=== PATIENT | female | born 1965 | race Caucasian/White ===

== ENCOUNTER 2019-11-17 19:52 | Emergency (ER) | payer SELFPAY ==
[2019-11-17 19:56] VITALS: BP 107/70; PULSE 104; RESP 16; TEMP 37.2; O2SAT 94; BMI 27.1
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
[2019-11-17 20:05] VITALS: BP 107/70; PULSE 105; RESP 16; TEMP 37.2; O2SAT 94; BMI 27.4
[2019-11-17 20:37] LABS: Basophils # 0.1 10^3/uL (0.0-0.1); Basophils % 0.6 %; Eosinophils # 0.1 10^3/uL (0.0-0.8); Eosinophils % 1.6 %; Hematocrit 43.3 % (37.0-47.0); Hemoglobin 14.7 g/dL (11.5-15.3); Lymphocytes % 24.1 %; Mean Corpuscular HGB Conc 33.9 g/dL (30.0-36.0); Mean Corpuscular Hemoglobin 32.7 pg (28.0-34.0); Mean Corpuscular Volume 96.2 fL (81-99); Mean Platelet Volume 9.7 fL (7.4-10.4); Monocytes # 0.5 10^3/uL (0.2-0.9); Monocytes % 5.8 %; Neutrophils # 5.6 10^3/uL (1.8-7.7); Neutrophils % 67.4 %; Nucleated Red Blood Cells % 0 %; Platelet Count 316 10^3/cmm (130-400); White Blood Count 8.3 10^3/uL (4.0-10.0)
[2019-11-17] MEDS: iohexol 300 mg/mL 100 mL Btl IV (20:49)
[2019-11-17 20:54] LABS: Alcohol Level 135 mg/dL (0-10); Anion Gap 16.2 (5-19); Blood Urea Nitrogen 13 mg/dL (6-20); Calcium 8.8 mg/dL (8.5-10.5); Carbon Dioxide 22 mmol/L (22-29); Chloride 107 mmol/L (98-107); Glomerular Filtration Rate 86.9 mL/min (90-130); Glucose 126 mg/dL (65-115); Osmolality Calculated 292 mOsm/kg (285-295); Potassium 3.2 mmol/L (3.5-5.1); Sodium 142 mmol/L (136-145)
--- NOTE | 2019-11-17 21:32 | PC.NURSE ---
MD at bedside to suture. Pt. tolerating well.
[2019-11-17 21:51] VITALS: BP 96/73; PULSE 97; RESP 18; O2SAT 97
--- NOTE | 2019-11-17 21:56 | PC.NURSE ---
Dry dressing placrd to left arm prior to discharge
== END 2019-11-17 21:56 | disposition home or self-care (01) ==
PROVIDERS: Emergency Provider Emergency Medicine; PCP Family Medicine
DX: S51.012A Laceration without foreign body of left elbow, initial encounter (principal); V89.2XXA Person injured in unspecified motor-vehicle accident, traffic, initial encounter; F17.210 Nicotine dependence, cigarettes, uncomplicated
CPT/HCPCS: 12002; 12345; 36415; 70450; 70486; 71260; 72125; 73080; 74177; 80048; 80307; 85025; 99283; Q9967

== ENCOUNTER 2020-04-25 09:10 | Emergency (ER) | payer SELFPAY ==
[2020-04-25] MEDS: sodium chloride 0.9% 1,000 ML 999 ML IV (09:30)
[2020-04-25 09:36] VITALS: BP 99/73; PULSE 89; RESP 18; TEMP 36.3; O2SAT 97; BMI 24.9
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
--- NOTE | 2020-04-25 09:41 | W.ED.ABDPA2 ---
HPI - Abdominal Pain General: Chief Complaint: Urogenital-Female Stated Complaint: POSSIBLE UTI Time Seen by Provider: 04/25/20 09:17 Source: patient Mode of arrival: ambulatory Limitations: no limitations History of Present Illness: HPI narrative: 54 yo female patient presents to ER with c/o right flank pain that radiates around to her gorwn. Pt states has known kidney stones and the pain feels similar. Pt denies any fever. pt c/o nausea but denies vomiting diarrhea or constipation. Pt denies any urinary symptoms. Onset of pain x 1 day. Associated Symptoms: Reports nausea; Denies chills, constipation, diarrhea, dysuria, fever(s), hematuria, syncope and vomiting Review of Systems Const: Denies: fever(s), chills or body aches Eyes: Denies: change in vision ENMT: Denies: throat pain or mouth pain Card: Denies: chest pain, palpitations, irregular heart rhythm, lightheadedness, syncope or dyspnea on exertion Resp: Denies: dyspnea, productive cough, non-productive cough, wheezing or stridor GI: Reports: abdominal pain and nausea; Denies: vomiting, diarrhea or constipation : Reports: flank pain; Denies: difficulty voiding, dysuria, urinary frequency, urinary urgency, hematuria, vaginal bleeding or vaginal discharge Musc: Denies: neck pain or back pain Skin/Breast: Denies: rash Neuro: Denies: headache(s), numbness in extremities, weakness in extremities, dizziness, vertigo or confusion Psych: Denies: anxiety, suicidal ideation or homicidal ideation [facility] ED PFSH: Social History Smoking and tobacco status: current every day smoker Physical Exam Const: COMMON NORMALS: no acute distress, average body habitus, patient oriented x3, no limitations, healthy appearing, alert and well nourished Eye: COMMON NORMALS: Equal, round and reactive pupils present, EOMs intact bilaterally and conjunctivae normal CONJUNCTIVA: Yes conjunctivae normal PUPIL: Yes Equal, round and reactive pupils present Neck/C-Spine: COMMON NORMALS: full ROM and no lymphadenopathy Lymph: LYMPHATIC: no lymphadenopathy noted Chest: COMMONS NORMALS: normal inspection of the chest and normal palpation of entire chest wall Resp: COMMON NORMALS: normal respiratory effort, No retractions, No use of accessory muscles and clear to auscultation bilaterally AUSCULTATION: clear to auscultation bilaterally Cardio: COMMON NORMALS: regular rate and regular rhythm RATE: regular rate RHYTHM: regular rhythm GI: COMMON NORMALS: Normal to inspection, nondistended, normoactive bowel sounds present, Soft to palpation, non-tender, No hepatosplenomegaly present and no masses PALPATION: Yes Soft to palpation and Yes No hepatosplenomegaly present : COMMON NORMALS: No no CVA tenderness and Yes normal external appearance BLADDER/KIDNEY EXAM: No no CVA tenderness and Yes CVA tenderness on the right Back/Pelvis: COMMON NORMALS: thoracic and lumbar spine normal to inspection, no thoracic nor lumbar tenderness, thoraco-lumbar ROM normal and straight leg raise negative bilaterally; negative for no CVA tenderness GENERAL BACK: Yes CVA tenderness Extremity: COMMON NORMALS: normal to inspection, full ROM and capillary refill normal Neuro: COMMON NORMALS: patient oriented x3 SENSORIUM/ORIENTATION: Yes alert Psych: COMMON NORMALS: mental status grossly normal, denies homicidal ideation and denies suicidal ideation Skin: COMMON NORMALS: no rashes or lesions noted, no wounds and turgor normal GENERAL SKIN EXAM: no rashes or lesions noted and turgor normal Course Vital Signs: Vital signs: Vital Signs Temperature 97.3 F L 04/25/20 09:36 Pulse Rate 76 04/25/20 10:20 Respiratory Rate 16 04/25/20 10:20 Blood Pressure 106/70 04/25/20 10:20 Pulse Oximetry 96 04/25/20 10:20 MDM - Abdominal Pain MDM Narrative: Medical decision making narrative: Pt is well appearing non toxic and in no acute distress. Patient had good clinical improvement of pain after pain meds and fluids. CT abd/pelvis reveals Patient: Sandra Zaldivar #: [id number] : 1965Acct#:[id number] Age/Sex: 54 / FADM Date: 04/25/20 Loc: ERRoom/Bed: Attending Dr: Ordering Provider/Ordering MD: Jaqui Michaels NP Date of Service: 04/25/20 Procedure(s): CT kidney stone 34886 Accession Number(s): [id number] Report Number: [id number] PROCEDURE INFORMATION: Exam: CT Abdomen And Pelvis Without Contrast Exam date and time: 04/25/2020 9:44 AM Age: 54 years old Clinical indication: Abdominal pain; Flank; Right; Prior surgery; Surgery date: 6+ months; Surgery type: Hyster, gb; Additional info: Flank pain known kidney stones TECHNIQUE: Imaging protocol: Computed tomography of the abdomen and pelvis without contrast. Note sagittal and coronal reconstructions were not performed. Radiation optimization: All CT scans at this facility use at least one of these dose optimization techniques: automated exposure control; mA and/or kV adjustment per patient size (includes targeted exams where dose is matched to clinical indication); or iterative reconstruction. COMPARISON: CT chest abd pel w con* 11/17/2019 8:40 PM RADIATION DOSE METRICS: Total DLP (mGy-cm): 692.56 FINDINGS: Detailed evaluation of the abdominal and pelvic viscera is somewhat limited in the absence of intravenous contrast. Lungs: Interstitial disease and mild parenchymal stranding. 2 mm left lower lobe nodule (series 2: Image 10). For patients at low risk (minimal or absent history of smoking and of other known risk factors), no routine follow-up is indicated. For patients at high risk (history of smoking or of other known risk factors), consider optional CT Chest at 12 months. (Reference: Donald). Liver: Fatty infiltration of the liver. Gallbladder and bile ducts: Status post cholecystectomy. Pancreas: No pancreatic mass or ductal dilatation. Spleen: No splenomegaly. Adrenal glands: Unremarkable adrenals. Kidneys and ureters: Multiple nodular hypodense renal lesions, including a stable 4.2 cm lower pole cyst. 1 mm nonobstructing right renal calculi. Stomach and bowel: No significant small bowel dilatation. Air-fluid levels in the mildly dilated colon. Appendix: No acute appendicitis. Intraperitoneal space: No significant free-fluid prior Vasculature: Vascular calcification. Normal caliber of the abdominal aorta. Lymph nodes: Subcentimeter lymph nodes. Urinary bladder: Nondistended bladder limiting evaluation. Reproductive: Status post hysterectomy. Bones/joints: Osteopenia. Degenerative change and disc bulging. CT/CT kidney stone [id number] IMPRESSION: 1. Multiple nodular hypodense right renal lesions, including a stable 4.2 cm lower pole cyst. 1 mm nonobstructing right renal calculi. 2. Additional findings as described above. Impression. COMMENTS: Consistent with the [employer]'s Incidental Findings Committee white paper (J Am Allison Radiol 2018): Any incidental renal lesion less than 1 cm or classified as too small to characterize, or any incidental cystic renal lesion characterized as simple-appearing, is likely benign. No follow-up imaging is recommended for these lesions per consensus recommendations based on imaging criteria. Based on these new findings, I will refer patient to Urology for follow up and further evaluation. Labs do not reveal any acute findings. Given patients pain is controlled with po pain meds, I will plan to discharge at this time Differential Diagnosis: Differential diagnosis abdominal pain: Likely abdominal pain, acute appendicitis, calculus of kidney, constipation, diverticulitis, pancreatitis and small bowel obstruction Medical Records: Attestation: I reviewed the patient's medical records. Lab Data: Attestation: I reviewed the patient's lab results. Labs: Lab Results 04/25/20 04/25/20 04/25/20 Range/Units 09:50 10:18 10:18 WBC 7.7 (4.0-10.0) 10^3/ uL RBC 4.23 (4.1-5.3) 10^6/u L Hgb 13.1 (11.5-15.3) g/dL Hct 39.5 (37.0-47.0) % MCV 93.4 (81-99) fL MCH 31.0 (28.0-34.0) pg MCHC 33.2 (30.0-36.0) g/dL RDW 12.7 (12.1-15.1) % Plt Count 322 (130-400) 10^3/c mm MPV 9.6 (7.4-10.4) fL Neut % (Auto) 52.2 % Lymph % (Auto) 37.4 % [place] % (Auto) 7.3 % Eos % (Auto) 2.5 % Baso % (Auto) 0.5 % Neut # (Auto) 3.99 (1.8-7.7) 10^3/u L Lymph # (Auto) 2.9 (0.8-4.8) 10^3/u L [place] # (Auto) 0.6 (0.2-0.9) 10^3/u L Eos # (Auto) 0.2 (0.0-0.8) 10^3/u L Baso # (Auto) 0.0 (0.0-0.1) 10^3/u L Nucleated RBC % (a uto) 0 % Nucleated RBCs # 0.0 /100WBC Sodium 141 (136-145) mmol/L Potassium 3.5 (3.5-5.1) mmol/L Chloride 107 (98-107) mmol/L Carbon Dioxide 25 (22-29) mmol/L Anion Gap 12.5 (5-19) BUN 14 (6-20) mg/dL Creatinine 0.8 (0.5-0.9) mg/dL GFR Calculation 74.5 L (90-130) mL/min Glucose 77 (65-115) mg/dL Calculated Osmolal ity 291 (285-295) mOsm/k g Calcium 8.9 (8.5-10.5) mg/dL Total Bilirubin 0.3 (0.15-1.2) mg/dL AST 20 (0-32) U/L ALT 21 (0-33) U/L Alkaline Phosphata se 68 (35-105) IU/L Total Protein 6.5 L (6.6-8.7) g/dL Albumin 4.2 (3.5-5.2) g/dL Globulin 2.3 (1.3-4.6) g/dL Lipase 40 (13-60) U/L Urine Color Straw (Yellow) Urine Appearance Clear (CLEAR) Urine pH 6 (5-7) Ur Specific Gravit y 1.020 (1.005-1.030) Urine Protein Neg (Negative) Urine Glucose (UA) Norm (Normal) Urine Ketones Negative (Negative) Urine Blood Neg (Negative) Urine Nitrate Negative (Negative) Urine Bilirubin Neg (Negative) Urine Urobilinogen Norm (Negative) mg/dL Ur Leukocyte Eriak ase Negative (Negative) Discharge Plan Discharge Patient Disposition: Home Clinical Impression: Renal lesion Condition: Stable Prescriptions: [place] 5-325 mg tablet 1 tab PO Q6H PRN (Reason: pain) 3 Days Qty: 12 RF: 0 No Action levothyroxine 137 mcg Tablet 137 mcg PO DAILY RF: 0 Tylenol 325 mg Tablet 325 - 650 mg PO Q4H PRN (Reason: Pain) RF: 0 trazodone 150 mg tablet 150 mg PO BEDTIME RF: 0 [place] HFA 90 mcg/actuation Hfa Aerosol Inhaler See Rx Instructions .ROUTE .COMPLEX RF: 0 fenofibrate nanocrystallized 145 mg tablet 145 mg PO DAILY RF: 0 Spiriva Respimat See Rx Instructions .ROUTE .COMPLEX RF: 0 Discharge Orders: Discharge Order (Routine); Ordered 04/25/20 Ordered By: Jaqui Michaels Referrals: Isaias Lomas [Primary Care Provider] - Discharge Diet: Advance as tolerated Discharge Activity: Resume usual activity Activity Restrictions/Additional Instructions: Please follow up with urology and case management rn will call you with follow up information Please return to ER with any worsening symptoms Coding Level of Care Code ED It Support Manager for Isaiasg Fwd Exam Comprehensive
--- NOTE | 2020-04-25 09:48 | PC.NURSE ---
Pt to CT
[2020-04-25 09:57] VITALS: RESP 18
[2020-04-25] MEDS: morphine 4 mg/mL SDV 1 mL IVP (09:57)
[2020-04-25 10:20] VITALS: BP 106/70; PULSE 76; RESP 16; O2SAT 96
[2020-04-25 10:26] LABS: Basophils % 0.5 %; Eosinophils # 0.2 10^3/uL (0.0-0.8); Eosinophils % 2.5 %; Hematocrit 39.5 % (37.0-47.0); Hemoglobin 13.1 g/dL (11.5-15.3); Lymphocytes # 2.9 10^3/uL (0.8-4.8); Lymphocytes % 37.4 %; Mean Corpuscular HGB Conc 33.2 g/dL (30.0-36.0); Mean Corpuscular Volume 93.4 fL (81-99); Mean Platelet Volume 9.6 fL (7.4-10.4); Monocytes # 0.6 10^3/uL (0.2-0.9); Monocytes % 7.3 %; Neutrophils # 3.99 10^3/uL (1.8-7.7); Neutrophils % 52.2 %; Nucleated Red Blood Cells % 0 %; Platelet Count 322 10^3/cmm (130-400); Red Blood Count 4.23 10^6/uL (4.1-5.3); Red Cell Distribution Width 12.7 % (12.1-15.1); White Blood Count 7.7 10^3/uL (4.0-10.0)
[2020-04-25] MEDS: ondansetron 2 mg/ML SDV 2 mL 4 MG IVP (10:39)
[2020-04-25 10:45] LABS: Alanine Aminotransferase 21 U/L (0-33); Albumin Level 4.2 g/dL (3.5-5.2); Alkaline Phosphatase 68 IU/L (35-105); Anion Gap 12.5 (5-19); Aspartate Amino Transferase 20 U/L (0-32); Blood Urea Nitrogen 14 mg/dL (6-20); Calcium 8.9 mg/dL (8.5-10.5); Carbon Dioxide 25 mmol/L (22-29); Chloride 107 mmol/L (98-107); Globulin 2.3 g/dL (1.3-4.6); Glomerular Filtration Rate 74.5 mL/min (90-130); Glucose 77 mg/dL (65-115); Lipase 40 U/L (13-60); Osmolality Calculated 291 mOsm/kg (285-295); Potassium 3.5 mmol/L (3.5-5.1); Sodium 141 mmol/L (136-145); Total Bilirubin 0.3 mg/dL (0.15-1.2); Total Protein 6.5 g/dL (6.6-8.7)
[2020-04-25 10:55] LABS: Add Urine Microscopic? NO; Bilirubin Urine Neg (Negative); Blood Urine Neg (Negative); Glucose Urine UA Norm (Normal); Ketones Urine Negative (Negative); Leukocyte Esterase Urine Negative (Negative); Nitrate Urine Negative (Negative); Protein Urine Neg (Negative); Urine Appearance Clear (CLEAR); Urine Color Straw (Yellow); Urobilinogen Urine Norm (Negative); pH Urine 6 (5-7)
[2020-04-25 11:37] VITALS: BP 106/70; PULSE 76; RESP 18; O2SAT 96
--- NOTE | 2020-04-26 09:50 | DCPLANNER ---
community outreach manager had message to schedule a follow up appointment for patient with Dr. Bhakta. community outreach manager called the office of Dr. Bhakta, spoke with Kacie, gave clinic patients information. community outreach manager was told that patients information would be printed and reviewed. Clinic will call patient with appointment information.
--- NOTE | 2020-04-27 08:01 | DCPLANNER ---
Patient has a follow up appointment scheduled for Sunday, May 05, 2020 at 2:[address] Bhakta. Clinic will call patient with appointment information.
--- NOTE | 2020-05-13 14:26 | DCPLANNER ---
Patient had a follow up appointment scheduled for 05.05.[address] Bhakta - patient did attend appointment.
== END 2020-04-25 11:41 | disposition home or self-care (01) ==
PROVIDERS: Emergency Medicine; Emergency Provider Registered Nurse; PCP Family Medicine
DX: N28.9 Disorder of kidney and ureter, unspecified (principal); F17.210 Nicotine dependence, cigarettes, uncomplicated
CPT/HCPCS: 12345; 74176; 80053; 81003; 83690; 85025; 96361; 96374; 96375; 99282; 99283; J2270; J2405; J7030

== ENCOUNTER 2020-05-05 13:16 | Outpatient (CLI) | payer SELFPAY ==
--- NOTE | 2020-05-05 12:45 | XR_ITS ---
WS: [id number] XR KUB [id number] REASON FOR EXAM: RENAL STONE FINDINGS: The less than 3 mm calculus in the right kidney seen on the CT scan of 04/25/2020 cannot be visualize d on the plain film of the abdomen. Dense artifact overlies the left psoas at L4. Shadow Normal bowel gas pattern. No free air or retroperitoneal air. No mass or other significant calcification. XR/XR KUB [id number] IMPRESSION: Right intrarenal calculus demonstrated on previous CT scan not visualized on th e current plain film.
== END 2020-05-05 13:17 | disposition home or self-care (01) ==
PROVIDERS: PCP Family Medicine; Visit Provider Urology
DX: N20.0 Calculus of kidney (principal)
CPT/HCPCS: 74018; 81003